=== PATIENT | male | born 1975 | race Caucasian/White ===

== ENCOUNTER → 2022-12-26 | Day surgery (SDC) | payer OTHER ==
[~2022-12-26] MED LIST: ACETAMINOPHEN 1000 MG/100 ML 100 ML IV ONE; ACETAMINOPHEN/CODEINE 300MG - 30MG TAB ONE; BUPIVACAINE 0.25% 30ML SDV ONE; CEFAZOLIN SODIUM 2 GM ONE; CELEBREX100 MG PO; DEXAMETHASONE SOD PHOS INJ 4 MG/ML SDV ONE; EPHEDRINE SULFATE INJ 50 MG/ML VIAL ONE; FENTANYL CITRATE/PF 100MCG/2 ML INJ ONE; GLYCOPYRROLATE INJ 0.2 MG/ML VIAL ONE; KETOROLAC TROMETHAMINE 30 MG/ML VIAL ONE; LACTATED RINGER'S 1,000 ML ONE; LIDOCAINE HCL 2% LOCAL INJ 5 ML SDV VIAL INJ ONE; ONDANSETRON HCL INJ 2MG/ML 2ML 2 MG/ML VIAL ONE; POVIDONE IODINE 0.05% 0.05 % ML PO ONE; PROPOFOL IV EMULSION 10 MG/ML 20 ML VIAL ONE; SEVOFLURANE INHAL SOLN 250 ML PEN BTL ONE; SULINDAC150 MG PO; ULTRAM 50MG50 MG PO
[2022-12-26 09:37] VITALS: BP 128/94
== END | disposition home or self-care (01) ==
LOC: OR 05:29
PROVIDERS: ATTEND Specialist
DX: S83.222A Peripheral tear of medial meniscus, current injury, left knee, initial encounter (principal); M17.12 Unilateral primary osteoarthritis, left knee; M22.42 Chondromalacia patellae, left knee; X58.XXXA Exposure to other specified factors, initial encounter; Y93.89 Activity, other specified; Z88.6 Allergy status to analgesic agent; Z01.810 Encounter for preprocedural cardiovascular examination; Z87.891 Personal history of nicotine dependence
CPT/HCPCS: 29881; 93005; J0131; J1100; J1885; J2001; J2405; J2704; J3010; J7121

== ENCOUNTER → 2025-06-25 | Day surgery (SDC) | payer OTHER ==
[~2025-06-25] MED LIST changes: -ACETAMINOPHEN/CODEINE 300MG - 30MG TAB ONE; -BUPIVACAINE 0.25% 30ML SDV ONE; +BUPIVACAINE LIPOSOME/PF 266 MG/20 ML IJ ONE; -CEFAZOLIN SODIUM 2 GM ONE; +CELEBREX200 MG PO; +COQ-10100 MG PO; -GLYCOPYRROLATE INJ 0.2 MG/ML VIAL ONE; -KETOROLAC TROMETHAMINE 30 MG/ML VIAL ONE; -LACTATED RINGER'S 1,000 ML ONE; +MIDAZOLAM HCL 2 MG/2 ML VIAL ONE; +MULTI-VITAMIN1 EACH PO; -POVIDONE IODINE 0.05% 0.05 % ML PO ONE; +VITAMIN C500 MG PO; +VITAMIN D310 MCG PO; +Vancomycin IV 1 GM VIAL ONE; +[UNRECOGNIZED DRUG - OTHER] PO
[2025-06-25] MEDS: CEFAZOLIN SODIUM 2 GM ONE (10:47)
[2025-06-25] MEDS: LACTATED RINGER'S 1,000 ML ONE (10:47)
[2025-06-25 14:02] VITALS: TEMP 97.9
[2025-06-25] MEDS: FENTANYL CITRATE/PF 100MCG/2 ML INJ ONE (14:19)
[2025-06-25] MEDS: TRAMADOL HCL 50 MG TAB ONE (15:10)
[2025-06-25 15:15] VITALS: BP 128/88; PULSE 55; RESP 15; O2SAT 98
== END | disposition home or self-care (01) ==
LOC: OR 10:13
PROVIDERS: ATTEND Podiatrist Foot & Ankle Surgery
DX: T84.84XA Pain due to internal orthopedic prosthetic devices, implants and grafts, initial encounter (principal); M86.9 Osteomyelitis, unspecified; Y83.8 Other surgical procedures as the cause of abnormal reaction of the patient, or of later complication, without mention of misadventure at the time of the procedure; Z88.6 Allergy status to analgesic agent; Z01.810 Encounter for preprocedural cardiovascular examination; Z79.899 Other long term (current) drug therapy
CPT/HCPCS: 11981; 20240; 20680; 87071; 87075; 87205; 88300; 88307; 88311; 93005; C1889; J0131; J0666; J1100; J2003; J2250; J2405; J2704; J3010; J3373; J7121; 88304